=== PATIENT | female | born 2000 | race Caucasian/White ===

== ENCOUNTER 2025-05-16 08:14 | Inpatient (IN) | payer BC ==
[~2025-05-16] VITALS: Ht 162.6 cm; Wt 115.7 kg
[2025-05-17] MEDS ORDERED: TERBUTALINE SULFATE 1 MG/ML AMP SUB-Q PRN (00:15)
[2025-05-17] MEDS ORDERED: LACTATED RINGER'S 1,000 ML IV PRN (00:15)
[2025-05-17] MEDS ORDERED: LIDOCAINE HCL 1% 30 ML SDV INJ PRN (00:15)
[2025-05-17] MEDS ORDERED: MAGNESIUM HYDROXIDE/AL HYDROX 30 ML CUP PO PRN (00:15)
[2025-05-17] MEDS ORDERED: CALCIUM CARBONATE 500 MG CHEW PO PRN (00:15)
[2025-05-17] MEDS ORDERED: OXYTOCIN/0.9 % SODIUM CHLORIDE 30 UNITS/500 ML BAG IV SCH (00:15)
[2025-05-17 00:33] LABS: MCH 27.8 PG (25.6-32.2); MCHC 32.8 g/dL (32.2-35.5); MCV 84.7 fL (79.4-94.8); RBC 3.92 M/uL (3.93-5.22)
[2025-05-17 00:53] VITALS: BP 143/86
[2025-05-17 01:08] LABS: ABO O; ANTIBODY SCREEN NEGATIVE; RH POSITIVE
[2025-05-17 01:45] LABS: AMPHETAMINES, URINE NEGATIVE (NEGATIVE); BARBITURATES, URINE NEGATIVE (NEGATIVE); BENZODIAZEPINE, URINE NEGATIVE (NEGATIVE); CANNABINOID, URINE NEGATIVE (NEGATIVE); COCAINE, URINE NEGATIVE (NEGATIVE); ECSTASY, URINE NEGATIVE (NEGATIVE); FENTANYL, URINE NEGATIVE (NEGATIVE); METHADONE, URINE NEGATIVE (NEGATIVE); OPIATES, URINE NEGATIVE (NEGATIVE); OXYCODONE, URINE NEGATIVE (NEGATIVE); PHENCYCLIDINE, URINE NEGATIVE (NEGATIVE)
[2025-05-17] MEDS ORDERED: SOD+POT BICARB/CITRIC ACID 2 EA TABLET.EFF ONE (07:35)
[2025-05-17 07:47] LABS: BASOPHILS 0.3 % (0.1-1.2); EOSINOPHILS 1.9 % (0.7-5.8); LYMPHOCYTES 26.7 % (19.3-51.7); MCH 27.8 PG (25.6-32.2); MCHC 32.6 g/dL (32.2-35.5); MCV 85.2 fL (79.4-94.8); MONOCYTES 7.9 % (4.7-12.5); NEUTROPHILS 62.9 % (34.0-71.1); RBC 3.99 M/uL (3.93-5.22)
[2025-05-17 08:02] LABS: ALT (SGPT) 21.0 U/L (14-59); AST (SGOT) 18.0 U/L (15-37); GLOMERULAR FILTRATION RATE,EST 123.0 mL/min (>60); PROTEIN, TOTAL 6.4 g/dL (6.4-8.2); UREA NITROGEN 8.0 mg/dL (7-18)
[2025-05-17 08:03] LABS: PROTEIN, RANDOM URINE <6 mg/dL (NOT ESTABLISHED)
[2025-05-17 09:20] LABS: IS CROSSMATCH COMPATIBLE
[2025-05-17] MEDS ORDERED: DEXTROSE 5% - NACL 0.45% 1,000 ML IV SCH (10:15)
[2025-05-17] MEDS ORDERED: DEXTROSE 50% 50 ML SYR IV PRN ×2 (10:15)
[2025-05-17] MEDS ORDERED: SODIUM CHLORIDE 0.45% 1,000 ML IV SCH (10:15)
[2025-05-17] MEDS ORDERED: Insulin Regular, Human 100 UNIT/ML ML IV PRN (10:15)
[2025-05-17] MEDS ORDERED: DEXTROSE 5% 1,000 ML IV PRN (10:15)
[2025-05-17] MEDS ORDERED: IBLOOD GLUCOSE TEST STRIP 1 EA TEST XX PRN (10:15)
[2025-05-17] MEDS ORDERED: INSULIN REGULAR IN 0.9 % NACL 100 ML IV SCH (10:15)
[2025-05-17] MEDS ORDERED: GLUCAGON,HUMAN RECOMBINANT 1 MG/ML VIAL SUB-Q PRN (10:15)
[2025-05-17] MEDS ORDERED: IBLOOD GLUCOSE TEST STRIP 1 EA TEST VI SCH (11:00)
[2025-05-17] MEDS ORDERED: OXYTOCIN/0.9 % SODIUM CHLORIDE 500 ML IV SCH (13:15)
[2025-05-17] MEDS ORDERED: ROPIVACAINE 0.2% 200 ML BAG EPIDURAL SCH (20:15)
[2025-05-17] MEDS ORDERED: LACTATED RINGER'S 500 ML IV PRN (20:15)
[2025-05-17] MEDS ORDERED: LACTATED RINGER'S 2,000 ML IV ONE (20:15)
[2025-05-17] MEDS ORDERED: ePHEDrine sulfate 5 MG/ML SYRINGE IV PRN (20:15)
[2025-05-17 21:49] LABS: PROTEIN, RANDOM URINE <6 mg/dL (NOT ESTABLISHED)
[2025-05-18] MEDS ORDERED: Ropivacaine HCl 0.5% 30 ML VIAL ONE ×3 (04:13→10:59)
[2025-05-18] MEDS ORDERED: ROPIVACAINE 0.2% 200 ML BAG ONE (08:47)
[2025-05-18] MEDS ORDERED: fentaNYL citrate 100 MCG/2 ML VIAL ONE ×2 (08:48→10:26)
[2025-05-18] MEDS ORDERED: SOD+POT BICARB/CITRIC ACID 2 EA TABLET.EFF PO ONE (09:30)
[2025-05-18] MEDS ORDERED: LIDOCAINE 2% VISCOUS 6 ML SYR TOP ONE (09:30)
[2025-05-18] MEDS ORDERED: LACTATED RINGER'S 1,000 ML IV PRN (09:30)
[2025-05-18] MEDS ORDERED: AZITHROMYCIN 500 MG in DEXTROSE 5% 250 ML IV ONE (09:30)
[2025-05-18] MEDS ORDERED: CEFAZOLIN SODIUM 2 GM/20 ML SYR IV SCH (09:31)
[2025-05-18] MEDS ORDERED: LIDOCAINE 2% W/ EPI 1:200,000 20 ML SDV ONE ×2 (09:47→10:26)
[2025-05-18] MEDS ORDERED: OXYTOCIN 10 UNITS/ML VIAL ONE ×2 (10:05→10:06)
[2025-05-18] MEDS ORDERED: LACTATED RINGER'S 1,000 ML IV ONE (10:41)
[2025-05-18] MEDS ORDERED: SODIUM CHLORIDE 0.9% 20 ML IV ONE (10:59)
[2025-05-18] MEDS ORDERED: DEXAMETHASONE SOD PHOS 4 MG/ML VIAL ONE ×2 (10:59)
[2025-05-18] MEDS ORDERED: ACETAMINOPHEN 1,000 MG/100 ML VIAL ONE (11:06)
[2025-05-18] MEDS ORDERED: MORPHINE SULFATE 1 MG/ML VIAL ONE (11:10)
[2025-05-18] MEDS ORDERED: PROCHLORPERAZINE EDISYLATE 10 MG/2 ML VIAL IV PRN ×2 (11:15→11:45)
[2025-05-18] MEDS ORDERED: HYDROmorphone HCL 1 MG/ML SYR IV PRN (11:15)
[2025-05-18] MEDS ORDERED: KETOROLAC TROMETHAMINE 30 MG/ML VIAL IV PRN (11:15)
[2025-05-18] MEDS ORDERED: NALOXONE HCL 0.4 MG SYR IV PRN (11:15)
[2025-05-18] MEDS ORDERED: METOCLOPRAMIDE HCL 10 MG/2 ML SDV IV PRN ×2 (11:15→11:45)
[2025-05-18] MEDS ORDERED: SENNOSIDES/DOCUSATE 1 EA TAB PO SCH (11:43)
[2025-05-18] MEDS ORDERED: PROMETHAZINE HCL 25 MG TAB PO PRN (11:45)
[2025-05-18] MEDS ORDERED: OXYTOCIN/0.9 % SODIUM CHLORIDE 500 ML IV SCH (11:45)
[2025-05-18] MEDS ORDERED: LACTATED RINGER'S 1,000 ML IV SCH (11:45)
[2025-05-18] MEDS ORDERED: PROMETHAZINE HCL 25 MG SUPP PR PRN (11:45)
[2025-05-18] MEDS ORDERED: OXYCODONE HCL 5 MG TAB PO PRN (11:45)
--- NOTE | 2025-05-18 11:54 | NUR ---
05/18/25 1154 Marilin Chin 1140-PATIENT ARRIVED TO ROOM 102 FOR RECOVERY. PATIENT AWAKE REMAINS DROWSY DENIES PAIN OR NAUSEA. FUNDUS AT UMBILICUS LIGHT RUBRA DRAINAGE ON PAD. ALLISON CATHETER DRAINING YELLOW URINE. IV TO RIGHT FOREARM CDI INFUSING WITH 20 PITOCIN. SR HR 80'S. 1150-PATIENT AWAKE DENIES NAUSEA FEEDING BABY TO RIGHT BREAST WITH FBC ZAID SALAZAR ASSISTANCE. SIGNIFICANT OTHER AT BEDSIDE. RA 98% RR EVEN.
[2025-05-18 12:14] VITALS: BP 117/65
[2025-05-18] MEDS ORDERED: TRANEXAMIC ACID IN NACL,ISO-OS 100 ML IV ONE (13:33)
[2025-05-18 13:52] LABS: BASOPHILS 0.3 % (0.1-1.2); EOSINOPHILS 0 % (0.7-5.8); LYMPHOCYTES 5.7 % (19.3-51.7); MCH 27.9 PG (25.6-32.2); MCHC 33.1 g/dL (32.2-35.5); MCV 84.4 fL (79.4-94.8); MONOCYTES 4.5 % (4.7-12.5); NEUTROPHILS 89.1 % (34.0-71.1); RBC 3.40 M/uL (3.93-5.22)
[2025-05-18] MEDS ORDERED: ACETAMINOPHEN 325 MG TAB PO SCH (14:00)
[2025-05-18 14:02] LABS: INR 1.03 (0.80-1.30); PROTIME 13.1 Sec (11.2-14.2)
--- NOTE | 2025-05-18 14:07 | OR ---
[facility] [address] [place] [id number] Signed DATE OF OPERATION: 05/18/2025 SURGEON: Lorraine Khan MD PREOPERATIVE DIAGNOSES: 1. Intrauterine at 39 and 3/7th weeks. 2. Gestational diabetes mellitus type A2. 3. Arrest of first stage of labor. POSTOPERATIVE DIAGNOSES: 1. Intrauterine at 39 and 3/7th weeks. 2. Gestational diabetes mellitus type A2. 3. Arrest of first stage of labor. PROCEDURE: Primary low transverse section. FINDINGS: Clear amniotic fluid, vigorous male infant, Apgars of 9 and 9, weight of 9 pounds 0 ounces. Normal uterus, tubes, and ovaries. ANESTHESIA: Epidural. SENIOR COBOL DEVELOPER: Manuela Ferraro. IV FLUIDS: 1400 mL crystalloid. QUANTITATIVE BLOOD LOSS: 760 mL. URINE OUTPUT: 275 mL clear urine. DRAINS: Alanis to gravity. SPECIMENS: Electronically Signed By: LORRAINE KHAN MD 05/18/25 1407 PATIENT NAME: ROSSY SCHERER OPERATIVE REPORT DATE OF : 89 REPORT #: [id number] PHYSICIAN: LORRAINE KHAN MD PCP: JACOBY ATKINS (VERENICE) DO REPORT IS CONFIDENTIAL AND NOT TO BE RELEASED WITHOUT AUTHORIZATION [address] [id number] Signed None. COUNTS: Correct x2. COMPLICATIONS: None apparent. TECHNIQUE: With informed consent, the patient was taken to the operating room. Her epidural was bolused. Her lower extremities were placed in SCD pneumatic compression devices. She was given intravenous Ancef and azithromycin per protocol. She was prepped and draped in sterile fashion and time-out was performed per protocol. Under adequate regional analgesia an approximately 7 inch Pfannenstiel skin incision was made and sharp dissection was carried down to the layer of the rectus fascia which was nicked in the midline and enlarged bilaterally using sharp dissection. The rectus muscles were then taken down from the fascia both superiorly and inferiorly using combination of sharp and blunt dissection. The rectus muscles were in the midline and the preperitoneal tissue and peritoneum were entered using sharp dissection. Taking careful attention to the potential for underlying bowel. The peritoneal opening was enlarged using a combination of sharp and then blunt dissection. A bladder blade was placed. Using a scalpel, a low transverse uterine incision was made. Sharp dissection was carried down to the layer of the membranes. With bulging membranes the uterine incision was enlarged with blunt dissection in a superior to inferior direction. The amniotic membranes ruptured spontaneously releasing clear fluid. The surgeon's hand was placed into the lower uterine segment. head was elevated and delivered with fundal pressure. Shoulders delivered easily with fundal pressure. After 10 seconds, cord was clamped x2 and cut. Baby was handed to the transition team. Cord blood was taken per protocol. The placenta then delivered with gentle traction and fundal massage. It was found to be intact with a three-vessel cord. There was good uterine tone with intravenous oxytocin and fundal massage. The uterus was externalized. The uterine cavity was curetted with laparotomy sponges to remove all clot and products of conception. Uterine incision was then closed using 0 Monocryl in a running locked fashion. There was a slight extension on the left side anteriorly, which was easily closed. A second layer using 0 Monocryl was also placed. There was ooze on the left side, so we performed a running locked stitch approximately 2[address] over/across the uterine incision. The right aspect was then found to be bleeding, so 0 Vicryl [id number] stitch x2 was placed with good hemostasis. Electronically Signed By: LORRAINE KHAN MD 05/18/25 1407 PATIENT NAME: ROSSY SCHERER OPERATIVE REPORT DATE OF : [birth year] REPORT #: [id number] PHYSICIAN: LORRAINE KHAN MD PCP: JACOBY ATKINS (VERENICE) DO REPORT IS CONFIDENTIAL AND NOT TO BE RELEASED WITHOUT AUTHORIZATION [facility] [address] [place], [place] [address] Signed Posterior cul-de-sac was then cleared of all blood and clot. The uterine incision and bladder were inspected, there everything was noted to be hemostatic. Uterus was returned to the pelvis. The left and right pericolic gutters were cleared of all blood and clot. The rectus muscles and peritoneum were reapproximated using 2-0 chromic in a running fashion. The rectus muscle bellies were inspected and rendered hemostatic with electrocautery. The rectus fascia was closed with 0 Vicryl in a running fashion. Superficial incision was irrigated and rendered hemostatic with electrocautery. Subcutaneous tissue was reapproximated with 2-0 chromic in a running fashion. The skin was closed with the Insorb stapler device. Steri-Strips and Dermabond were then placed and a bandage was placed over the incision. DISPOSITION: The patient was taken to the recovery room in stable condition. Lorraine Khan MD BB/MODL /[id number] Copies: ~ Electronically Signed By: LORRAINE KHAN MD 05/18/25 1407 PATIENT NAME: ROSSY SCHERER OPERATIVE REPORT DATE OF : [birth year] REPORT #: [id number] PHYSICIAN: LORRAINE KHAN MD PCP: JACOBY ATKINS (VERENICE) DO REPORT IS CONFIDENTIAL AND NOT TO BE RELEASED WITHOUT AUTHORIZATION
[2025-05-18] MEDS ORDERED: CALCIUM GLUCONATE 1,000 MG/10 ML VIAL IV ONE (14:15)
[2025-05-18] MEDS ORDERED: PHYTONADIONE 10 MG/ML AMP SUB-Q ONE (14:15)
--- NOTE | 2025-05-18 14:30 | NUR ---
RN TO ROOM FOR ULTRASOUND IV PLACEMENT. ONE ATTEMPT IN LEFT LOW ARM AND SECOND ATTEMPT SUCCESSFUL IN LEFT LOWER ARM. BRUAN 18G X 2 1/2INCH USED. BRISK BLOOD RETURN NOTED AND FLUSHED WITHOUT PAIN.
[2025-05-18] MEDS ORDERED: TRANEXAMIC ACID IN NACL,ISO-OS 1,000 MG/100 ML PIGGYBACK IV ONE (15:45)
[2025-05-18] MEDS ORDERED: CARBOPROST TROMETHAMINE 250 MCG/ML AMP IM ONE (15:45)
[2025-05-18] MEDS ORDERED: SIMETHICONE 80 MG CHEW PO SCH (16:00)
--- NOTE | 2025-05-18 22:29 | NUR ---
CBG 70 FOR BABY
[2025-05-19] MEDS ORDERED: IBUPROFEN 600 MG TAB PO SCH ×2 (02:00→07:00)
[2025-05-19] MEDS ORDERED: ACETAMINOPHEN 325 MG TAB PO SCH (04:00)
[2025-05-19] MEDS ORDERED: LACTATED RINGER'S 1,000 ML IV SCH (05:00)
[2025-05-19 05:31] LABS: BASOPHILS 0.1 % (0.1-1.2); EOSINOPHILS 0.1 % (0.7-5.8); LYMPHOCYTES 14.7 % (19.3-51.7); MCH 28.3 PG (25.6-32.2); MCHC 33.5 g/dL (32.2-35.5); MCV 84.5 fL (79.4-94.8); MONOCYTES 8.1 % (4.7-12.5); NEUTROPHILS 76.5 % (34.0-71.1); RBC 2.65 M/uL (3.93-5.22)
[2025-05-20 07:15] LABS: ABO O; RH POSITIVE
== END 2025-05-21 10:15 | disposition home or self-care (01) | DRG 788 ==
LOC: FBC 05-17 00:01
PROVIDERS: Advanced Practice Midwife; Obstetrics & Gynecology; ADMIT Obstetrics & Gynecology; ATTEND Obstetrics & Gynecology
PROC: 10D00Z1 Extraction of Products of Conception, Low, Open Approach (ICD-10-PCS; principal; 2025-05-18 09:00)
PROC: 10907ZC Drainage of Amniotic Fluid, Therapeutic from Products of Conception, Via Natural or Artificial Opening (ICD-10-PCS; principal; 2025-05-18 09:00)
DX: O24.424 Gestational diabetes mellitus in childbirth, insulin controlled (principal); Z3A.39 39 weeks gestation of pregnancy; Z37.0 Single live birth; O62.1 Secondary uterine inertia; O99.52 Diseases of the respiratory system complicating childbirth; O99.344 Other mental disorders complicating childbirth; F41.9 Anxiety disorder, unspecified; J45.909 Unspecified asthma, uncomplicated; F32.A Depression, unspecified; Z79.85 Long-term (current) use of injectable non-insulin antidiabetic drugs; Z79.899 Other long term (current) drug therapy; Z87.891 Personal history of nicotine dependence; Z90.89 Acquired absence of other organs
CPT/HCPCS: 01961; 36415; 76942; 80053; 80307; 82570; 84156; 85025; 85027; 85384; 85610; 85730; 86850; 86900; 86901; 86922; A9270; J0131; J0456; J0612; J0690; J1100; J2274; J2405; J2590; J2795; J3010; J3430; J7042; J7060; J7121